=== PATIENT | female | born 2000 | race Caucasian/White ===

== ENCOUNTER 2021-07-04 03:07 | Inpatient (IN) ==
[2021-07-04] MEDS ORDERED: Naloxone 0.4 MG/ML INJ IVP PRN (05:05)
[2021-07-04] MEDS ORDERED: Ondansetron 4 MG/2 ML VIAL IVP PRN (05:05)
[2021-07-04] MEDS ORDERED: 0.9 % Sodium Chloride 1,000 ML IVC SCH (05:15)
[2021-07-04 05:47] LABS: Basophils % 0.3 %; Eosinophils # 0.1 K/mcL (0.0-0.6); Eosinophils % 0.6 %; Hematocrit 36.2 % (35.3-44.9); Hemoglobin 11.7 g/dL (11.5-15.4); Immature Granulocytes % 0.5 % (0-4); Lymphocytes # 0.9 K/mcL (0.6-4.6); Lymphocytes % 8.3 %; Mean Corpuscular HGB Conc 32.3 g/dL (31.6-35.5); Mean Corpuscular Hemoglobin 26.1 pg (28.0-33.3); Mean Corpuscular Volume 80.8 fL (83.0-100.0); Mean Platelet Volume 10.7 fL (9.4-12.4); Monocytes # 0.9 K/mcL (0.0-1.3); Monocytes % 8.7 %; Neutrophils # 8.7 K/mcL (1.6-8.9); Platelet Count 340 K/mcL (140-400); Red Blood Count 4.48 M/mcL (3.82-4.97); Red Cell Distribution Width 13.8 % (11.5-14.5); Segmented Neutrophils % 81.6 %; White Blood Count 10.6 K/mcL (4.3-11.1)
[2021-07-04 05:57] LABS: INR 1.1; Prothrombin Time 12.4 Seconds (9.4-12.1)
[2021-07-04 06:10] LABS: Alanine Aminotransferase 323 Units/L (7-52); Albumin 4.4 g/dL (3.5-5.7); Albumin/Globulin Ratio 1.5 (1.1-2.2); Alkaline Phosphatase 266 Units/L (34-104); Aspartate Amino Transferase 728 Units/L (13-39); BUN/Creatinine Ratio 13 (6-26); Bilirubin,Total 2.6 mg/dL (0.3-1.0); Blood Urea Nitrogen 8 mg/dL (6-20); Calcium 9.8 mg/dL (8.6-10.3); Carbon Dioxide 24 mEq/L (23-29); Chloride 104 mEq/L (98-107); Cholesterol 142 mg/dL (< 200); Glucose 116 mg/dL (70-105); HDL Cholesterol 71 mg/dL (40-59); LDL Cholesterol,Calculated 60 mg/dL (< 100); Osmolality,Calculated 287 (280-300); Potassium 3.7 mEq/L (3.5-5.1); Sodium 139 mEq/L (136-145); Total Protein 7.4 g/dL (6.4-8.9); Triglycerides 55 mg/dL (< 150); eGFR For African Americans > 60 (> 60); eGFR For Non-African Americans > 60 (> 60)
[2021-07-04] MEDS ORDERED: *HR* Succinylcholine 200 MG/10 ML VIAL IVP ONE (12:14)
[2021-07-04] MEDS ORDERED: Lidocaine -MPF 2% 2 ML VIAL ONE (12:14)
[2021-07-04] MEDS ORDERED: *HR* Rocuronium Bromide 50 MG/5 ML VIAL ONE (12:14)
[2021-07-04] MEDS ORDERED: Lidocaine HCL 4 ML Topical Solution (Laryng-O-Jet Kit Sterile Pak) TP ONE (12:14)
[2021-07-04] MEDS ORDERED: Ondansetron 4 MG/2 ML VIAL ONE (12:14)
[2021-07-04] MEDS ORDERED: *HR* FentaNYL (PF) 100 MCG/2 ML VIAL ONE (12:15)
[2021-07-04] MEDS ORDERED: *HR* Midazolam HCl 2 MG/2 ML VIAL ONE (12:15)
[2021-07-04] MEDS ORDERED: *HR* Propofol 200 MG/20 ML VIAL IVP ONE (12:15)
[2021-07-04] MEDS ORDERED: Indomethacin 50 MG SUPP.RECT RC ONE (13:45)
[2021-07-05 07:18] LABS: Basophils % 0.3 %; Eosinophils % 0.5 %; Hematocrit 33.7 % (35.3-44.9); Hemoglobin 10.5 g/dL (11.5-15.4); Immature Granulocytes % 0.3 % (0-4); Lymphocytes # 1.4 K/mcL (0.6-4.6); Lymphocytes % 19.2 %; Mean Corpuscular HGB Conc 31.2 g/dL (31.6-35.5); Mean Corpuscular Hemoglobin 25.4 pg (28.0-33.3); Mean Corpuscular Volume 81.4 fL (83.0-100.0); Monocytes # 0.6 K/mcL (0.0-1.3); Neutrophils # 5.4 K/mcL (1.6-8.9); Platelet Count 273 K/mcL (140-400); Red Blood Count 4.14 M/mcL (3.82-4.97); Red Cell Distribution Width 13.5 % (11.5-14.5); Segmented Neutrophils % 71.7 %; White Blood Count 7.5 K/mcL (4.3-11.1)
[2021-07-05 07:40] LABS: Alanine Aminotransferase 262 Units/L (7-52); Albumin 3.7 g/dL (3.5-5.7); Albumin/Globulin Ratio 1.5 (1.1-2.2); Alkaline Phosphatase 335 Units/L (34-104); Aspartate Amino Transferase 256 Units/L (13-39); BUN/Creatinine Ratio 13 (6-26); Bilirubin,Total 1.7 mg/dL (0.3-1.0); Blood Urea Nitrogen 8 mg/dL (6-20); Calcium 9.3 mg/dL (8.6-10.3); Carbon Dioxide 28 mEq/L (23-29); Chloride 104 mEq/L (98-107); Globulin 2.5 g/dL (2.4-3.5); Glucose 105 mg/dL (70-105); Lipase 95 Units/L (11-82); Osmolality,Calculated 285 (280-300); Potassium 3.8 mEq/L (3.5-5.1); Sodium 138 mEq/L (136-145); Total Protein 6.2 g/dL (6.4-8.9); eGFR For African Americans > 60 (> 60); eGFR For Non-African Americans > 60 (> 60)
[2021-07-05] MEDS ORDERED: Morphine Sulfate 2 MG/ML SYRINGE IVP ONE (09:00)
[2021-07-05] MEDS: Morphine Sulfate 2 MG/ML SYRINGE IVP PRN (13:00)
[2021-07-05] MEDS: polyethylene glycoL 3350 17 GM POWD.PACK PO SCH (13:17)
[2021-07-05] MEDS: 0.9 % Sodium Chloride 1,000 ML IVC SCH (13:40)
[2021-07-05] MEDS: Ketorolac 30 MG/ML VIAL IVP PRN (15:41)
[2021-07-06] MEDS: Morphine Sulfate 2 MG/ML SYRINGE IVP PRN ×3 (00:03→15:09)
[2021-07-06] MEDS: 0.9 % Sodium Chloride 1,000 ML IVC SCH ×2 (03:38→18:14)
[2021-07-06 05:40] LABS: Basophils % 0.5 %; Eosinophils # 0.1 K/mcL (0.0-0.6); Eosinophils % 1.6 %; Hematocrit 32.3 % (35.3-44.9); Immature Granulocytes % 0.3 % (0-4); Lymphocytes # 2.5 K/mcL (0.6-4.6); Lymphocytes % 38.9 %; Mean Corpuscular Hemoglobin 25.8 pg (28.0-33.3); Mean Corpuscular Volume 83.5 fL (83.0-100.0); Mean Platelet Volume 11.2 fL (9.4-12.4); Monocytes # 0.5 K/mcL (0.0-1.3); Monocytes % 7.2 %; Neutrophils # 3.3 K/mcL (1.6-8.9); Platelet Count 256 K/mcL (140-400); Red Blood Count 3.87 M/mcL (3.82-4.97); Red Cell Distribution Width 13.8 % (11.5-14.5); Segmented Neutrophils % 51.5 %; White Blood Count 6.4 K/mcL (4.3-11.1)
[2021-07-06 05:58] LABS: Alanine Aminotransferase 169 Units/L (7-52); Albumin 3.4 g/dL (3.5-5.7); Albumin/Globulin Ratio 1.4 (1.1-2.2); Alkaline Phosphatase 263 Units/L (34-104); Aspartate Amino Transferase 86 Units/L (13-39); BUN/Creatinine Ratio 16 (6-26); Bilirubin,Total 0.6 mg/dL (0.3-1.0); Blood Urea Nitrogen 8 mg/dL (6-20); Calcium 8.8 mg/dL (8.6-10.3); Carbon Dioxide 26 mEq/L (23-29); Chloride 105 mEq/L (98-107); Globulin 2.5 g/dL (2.4-3.5); Glucose 88 mg/dL (70-105); Osmolality,Calculated 286 (280-300); Potassium 3.5 mEq/L (3.5-5.1); Sodium 139 mEq/L (136-145); Total Protein 5.9 g/dL (6.4-8.9); eGFR For African Americans > 60 (> 60); eGFR For Non-African Americans > 60 (> 60)
[2021-07-06] MEDS: polyethylene glycoL 3350 17 GM POWD.PACK PO SCH (07:50)
[2021-07-06] MEDS: Ketorolac 30 MG/ML VIAL IVP PRN (13:00)
[2021-07-06] MEDS ORDERED: *HR* OxyCODONE Immed Rel 5 MG TABLET PO PRN (13:32)
[2021-07-06] MEDS ORDERED: *HR* Propofol 200 MG/20 ML VIAL IVP ONE ×2 (13:33→13:45)
[2021-07-06] MEDS ORDERED: Lidocaine -MPF 2% 2 ML VIAL ONE (13:34)
[2021-07-06] MEDS ORDERED: Ondansetron 4 MG/2 ML VIAL ONE (13:36)
[2021-07-07 01:49] LABS: Hematocrit 33.1 % (35.3-44.9); Hemoglobin 10.2 g/dL (11.5-15.4); Immature Granulocytes % 0.7 % (0-4); Lymphocytes # 0.8 K/mcL (0.6-4.6); Lymphocytes % 13.3 %; Mean Corpuscular HGB Conc 30.8 g/dL (31.6-35.5); Mean Corpuscular Hemoglobin 25.5 pg (28.0-33.3); Mean Corpuscular Volume 82.8 fL (83.0-100.0); Mean Platelet Volume 11.4 fL (9.4-12.4); Monocytes # 0.3 K/mcL (0.0-1.3); Monocytes % 4.3 %; Platelet Count 260 K/mcL (140-400); Red Cell Distribution Width 13.5 % (11.5-14.5); Segmented Neutrophils % 81.7 %; White Blood Count 6.1 K/mcL (4.3-11.1)
[2021-07-07 01:57] LABS: Alanine Aminotransferase 130 Units/L (7-52); Albumin 3.5 g/dL (3.5-5.7); Albumin/Globulin Ratio 1.3 (1.1-2.2); Alkaline Phosphatase 235 Units/L (34-104); Aspartate Amino Transferase 42 Units/L (13-39); BUN/Creatinine Ratio 15 (6-26); Bilirubin,Total 0.5 mg/dL (0.3-1.0); Blood Urea Nitrogen 7 mg/dL (6-20); Carbon Dioxide 27 mEq/L (23-29); Chloride 103 mEq/L (98-107); Globulin 2.7 g/dL (2.4-3.5); Glucose 120 mg/dL (70-105); Osmolality,Calculated 285 (280-300); Potassium 3.6 mEq/L (3.5-5.1); Sodium 138 mEq/L (136-145); Total Protein 6.2 g/dL (6.4-8.9); eGFR For African Americans > 60 (> 60); eGFR For Non-African Americans > 60 (> 60)
[2021-07-07] MEDS: 0.9 % Sodium Chloride 1,000 ML IVC SCH (05:34)
[2021-07-07] MEDS: polyethylene glycoL 3350 17 GM POWD.PACK PO SCH (07:30)
[2021-07-07] MEDS: Ketorolac 30 MG/ML VIAL IVP PRN (08:00)
[2021-07-07] MEDS ORDERED: *HR* Midazolam HCl 2 MG/2 ML VIAL ONE (08:47)
[2021-07-07] MEDS ORDERED: *HR* FentaNYL (PF) 100 MCG/2 ML VIAL ONE ×2 (08:47→10:24)
[2021-07-07] MEDS ORDERED: *HR* Propofol 200 MG/20 ML VIAL IVP ONE (08:47)
[2021-07-07] MEDS ORDERED: Scopolamine Patch 1.5 MG PATCH.TD72 TD ONE ×2 (09:11→19:24)
[2021-07-07] MEDS ORDERED: Ketorolac 30 MG/ML VIAL IVP PRN ×2 (09:11→19:24)
[2021-07-07] MEDS ORDERED: Promethazine 6.25 MG in Water for inj. (sterile) 20 ML IVPB PRN (09:11)
[2021-07-07] MEDS ORDERED: Ondansetron 4 MG/2 ML VIAL IVP PRN ×3 (09:11→19:24)
[2021-07-07] MEDS ORDERED: *HR* HYDROmorphone 2 MG TABLET PO PRN ×2 (09:11→19:24)
[2021-07-07] MEDS ORDERED: Famotidine 20 MG/2 ML VIAL IVP ONE ×2 (09:11→19:24)
[2021-07-07] MEDS ORDERED: Acetaminophen IV 1,000 MG/100 ML BAG IVPB ONE ×2 (09:11→19:24)
[2021-07-07] MEDS ORDERED: *HR* OxyCODONE Immed Rel 5 MG TABLET PO PRN ×2 (09:11→19:24)
[2021-07-07] MEDS ORDERED: *HR* Labetalol 20 MG/4 ML SYRINGE IVP PRN ×2 (09:11→19:24)
[2021-07-07] MEDS ORDERED: cefOXitin 2,000 MG in 0.9 % Sodium Chloride Mini Bag 100 ML IVPB ONE (10:05)
[2021-07-07] MEDS ORDERED: Ondansetron 4 MG/2 ML VIAL ONE (10:21)
[2021-07-07] MEDS ORDERED: Lidocaine -MPF 2% 2 ML VIAL ONE (10:21)
[2021-07-07] MEDS ORDERED: *HR* Rocuronium Bromide 50 MG/5 ML VIAL ONE (10:21)
[2021-07-07] MEDS ORDERED: *HR* Succinylcholine 200 MG/10 ML VIAL IVP ONE (10:21)
[2021-07-07] MEDS ORDERED: Lidocaine HCL 4 ML Topical Solution (Laryng-O-Jet Kit Sterile Pak) TP ONE (10:21)
[2021-07-07] MEDS ORDERED: Ketorolac 30 MG/ML VIAL ONE (10:21)
[2021-07-07] MEDS ORDERED: *HR* HYDROMORPHONE 2 MG/ML VIAL ONE (10:23)
[2021-07-07] MEDS ORDERED: Sugammadex Sodium 200 MG/2 ML VIAL IV ONE (10:41)
[2021-07-07] MEDS: *HR* HYDROmorphone (PF) 1 MG/ML SYRINGE IVP PRN ×2 (11:34→11:47)
[2021-07-07] MEDS: Morphine Sulfate 2 MG/ML SYRINGE IVP PRN ×2 (12:52→22:58)
[2021-07-07] MEDS ORDERED: Naloxone 0.4 MG/ML INJ IVP PRN (19:24)
[2021-07-07] MEDS ORDERED: *HR* HYDROmorphone (PF) 1 MG/ML SYRINGE IVP PRN (19:24)
[2021-07-07] MEDS ORDERED: 0.9 % Sodium Chloride 1,000 ML IVC SCH (19:24)
[2021-07-08] MEDS ORDERED: *HR* HYDROmorphone (PF) 1 MG/ML SYRINGE IVP ONE (00:53)
[2021-07-08 08:44] LABS: Basophils % 0.2 %; Eosinophils % 0.5 %; Hemoglobin 9.1 g/dL (11.5-15.4); Immature Granulocytes % 0.4 % (0-4); Lymphocytes # 2.3 K/mcL (0.6-4.6); Lymphocytes % 41.5 %; Mean Corpuscular HGB Conc 31.4 g/dL (31.6-35.5); Mean Corpuscular Volume 82.9 fL (83.0-100.0); Mean Platelet Volume 11.2 fL (9.4-12.4); Monocytes # 0.4 K/mcL (0.0-1.3); Monocytes % 6.9 %; Neutrophils # 2.8 K/mcL (1.6-8.9); Platelet Count 213 K/mcL (140-400); Red Cell Distribution Width 13.8 % (11.5-14.5); Segmented Neutrophils % 50.5 %; White Blood Count 5.5 K/mcL (4.3-11.1)
[2021-07-08 09:03] LABS: Alanine Aminotransferase 79 Units/L (7-52); Albumin 3.1 g/dL (3.5-5.7); Albumin/Globulin Ratio 1.5 (1.1-2.2); Alkaline Phosphatase 173 Units/L (34-104); Aspartate Amino Transferase 31 Units/L (13-39); BUN/Creatinine Ratio 5 (6-26); Bilirubin,Direct 0.1 mg/dL (0.0-0.2); Bilirubin,Indirect 0.3 mg/dL (0.0-1.0); Bilirubin,Total 0.4 mg/dL (0.3-1.0); Blood Urea Nitrogen 3 mg/dL (6-20); Calcium 8.8 mg/dL (8.6-10.3); Carbon Dioxide 30 mEq/L (23-29); Chloride 108 mEq/L (98-107); Globulin 2.1 g/dL (2.4-3.5); Glucose 94 mg/dL (70-105); Lipase 7 Units/L (11-82); Osmolality,Calculated 290 (280-300); Potassium 3.3 mEq/L (3.5-5.1); Sodium 142 mEq/L (136-145); Total Protein 5.2 g/dL (6.4-8.9); eGFR For African Americans > 60 (> 60); eGFR For Non-African Americans > 60 (> 60)
[2021-07-08] MEDS: polyethylene glycoL 3350 17 GM POWD.PACK PO SCH ×2 (09:52→23:07)
[2021-07-08] MEDS: Ketorolac 30 MG/ML VIAL IVP PRN ×2 (14:29→20:40)
[2021-07-08] MEDS: Morphine Sulfate 2 MG/ML SYRINGE IVP PRN (18:34)
[2021-07-08] MEDS ORDERED: Melatonin 3 MG TABLET PO PRN (23:01)
[2021-07-09] MEDS: Ketorolac 30 MG/ML VIAL IVP PRN (04:53)
[2021-07-09] MEDS ORDERED: Simethicone 80 MG TAB.CHEW PO ONE (11:41)
[2021-07-09 12:09] VITALS: BP 114/75; PULSE 71; TEMP 98.7; O2SAT 97
== END 2021-07-09 13:35 | disposition home or self-care (01) | DRG 263 ==
LOC: 3ANU
PROVIDERS: ADMIT Internal Medicine; ATTEND Internal Medicine

== ENCOUNTER 2021-07-14 10:38 | Observation (INO) ==
[2021-07-14] MEDS ORDERED: Mag Hydrox/Al Hydrox/Simeth 30 ML UDC PO PRN (12:11)
[2021-07-14] MEDS ORDERED: Ondansetron ODT 4 MG TAB.RAPDIS SL PRN (12:11)
[2021-07-14] MEDS ORDERED: MOM Conc 10 ML UD.LIQ PO PRN (12:11)
[2021-07-14] MEDS ORDERED: Naloxone 0.4 MG/ML INJ IVP PRN (12:11)
[2021-07-14] MEDS ORDERED: Melatonin 3 MG TABLET PO PRN (12:11)
[2021-07-14 13:11] LABS: Alanine Aminotransferase 49 Units/L (7-52); Albumin 4.2 g/dL (3.5-5.7); Albumin/Globulin Ratio 1.1 (1.1-2.2); Alkaline Phosphatase 200 Units/L (34-104); Aspartate Amino Transferase 30 Units/L (13-39); BUN/Creatinine Ratio 9 (6-26); Bilirubin,Total 0.5 mg/dL (0.3-1.0); Blood Urea Nitrogen 8 mg/dL (6-20); Calcium 9.7 mg/dL (8.6-10.3); Carbon Dioxide 22 mEq/L (23-29); Chloride 104 mEq/L (98-107); Globulin 3.9 g/dL (2.4-3.5); Glucose 103 mg/dL (70-105); Osmolality,Calculated 283 (280-300); Potassium 3.8 mEq/L (3.5-5.1); Sodium 137 mEq/L (136-145); Total Protein 8.1 g/dL (6.4-8.9); eGFR For African Americans > 60 (> 60); eGFR For Non-African Americans > 60 (> 60)
[2021-07-14 13:30] LABS: Basophils % 0.3 %; Eosinophils # 0.2 K/mcL (0.0-0.6); Eosinophils % 1.8 %; Hematocrit 38.4 % (35.3-44.9); Hemoglobin 11.8 g/dL (11.5-15.4); Immature Granulocytes % 0.4 % (0-4); Lymphocytes # 1.8 K/mcL (0.6-4.6); Lymphocytes % 15.3 %; Mean Corpuscular HGB Conc 30.7 g/dL (31.6-35.5); Mean Corpuscular Hemoglobin 25.4 pg (28.0-33.3); Mean Corpuscular Volume 82.8 fL (83.0-100.0); Mean Platelet Volume 11.2 fL (9.4-12.4); Monocytes # 0.9 K/mcL (0.0-1.3); Monocytes % 7.6 %; Platelet Count 369 K/mcL (140-400); Red Blood Count 4.64 M/mcL (3.82-4.97); Red Cell Distribution Width 13.8 % (11.5-14.5); Segmented Neutrophils % 74.6 %
[2021-07-14] MEDS: *HR* OxyCODONE Immed Rel 5 MG TABLET PO PRN (21:38)
[2021-07-15] MEDS ORDERED: Acetaminophen IV 1,000 MG/100 ML BAG IVPB ONE ×2 (00:21→05:29)
[2021-07-15 05:23] LABS: Basophils % 0.3 %; Eosinophils # 0.3 K/mcL (0.0-0.6); Eosinophils % 2.9 %; Hematocrit 35.5 % (35.3-44.9); Hemoglobin 11.3 g/dL (11.5-15.4); Immature Granulocytes % 0.3 % (0-4); Lymphocytes # 2.8 K/mcL (0.6-4.6); Lymphocytes % 26.4 %; Mean Corpuscular HGB Conc 31.8 g/dL (31.6-35.5); Mean Corpuscular Hemoglobin 25.7 pg (28.0-33.3); Mean Corpuscular Volume 80.9 fL (83.0-100.0); Mean Platelet Volume 11.2 fL (9.4-12.4); Monocytes % 9.3 %; Neutrophils # 6.5 K/mcL (1.6-8.9); Platelet Count 323 K/mcL (140-400); Red Blood Count 4.39 M/mcL (3.82-4.97); Red Cell Distribution Width 13.7 % (11.5-14.5); Segmented Neutrophils % 60.8 %; White Blood Count 10.6 K/mcL (4.3-11.1)
[2021-07-15 06:23] LABS: Alanine Aminotransferase 35 Units/L (7-52); Albumin 3.8 g/dL (3.5-5.7); Albumin/Globulin Ratio 1.3 (1.1-2.2); Alkaline Phosphatase 177 Units/L (34-104); Aspartate Amino Transferase 20 Units/L (13-39); BUN/Creatinine Ratio 14 (6-26); Bilirubin,Total 0.5 mg/dL (0.3-1.0); Blood Urea Nitrogen 10 mg/dL (6-20); Calcium 9.2 mg/dL (8.6-10.3); Carbon Dioxide 21 mEq/L (23-29); Chloride 106 mEq/L (98-107); Globulin 2.9 g/dL (2.4-3.5); Glucose 95 mg/dL (70-105); Osmolality,Calculated 281 (280-300); Potassium 3.5 mEq/L (3.5-5.1); Sodium 136 mEq/L (136-145); Total Protein 6.7 g/dL (6.4-8.9); eGFR For African Americans > 60 (> 60); eGFR For Non-African Americans > 60 (> 60)
[2021-07-15] MEDS ORDERED: Lidocaine -MPF 2% 2 ML VIAL ONE (13:51)
[2021-07-15] MEDS ORDERED: *HR* FentaNYL (PF) 100 MCG/2 ML VIAL ONE (13:51)
[2021-07-15] MEDS ORDERED: Ondansetron 4 MG/2 ML VIAL ONE (13:51)
[2021-07-15] MEDS ORDERED: *HR* Propofol 200 MG/20 ML VIAL IVP ONE (13:51)
[2021-07-15] MEDS ORDERED: Lidocaine -MPF 4% 5 ML AMPUL ONE (13:51)
[2021-07-15] MEDS ORDERED: *HR* Succinylcholine 200 MG/10 ML VIAL IVP ONE (13:51)
[2021-07-15] MEDS ORDERED: Indomethacin 50 MG SUPP.RECT RC ONE (14:29)
[2021-07-15] MEDS ORDERED: Ondansetron 4 MG/2 ML VIAL IVP PRN (14:51)
[2021-07-15] MEDS ORDERED: *HR* Meperidine 25 MG/ML SYRINGE IVP PRN (14:51)
[2021-07-15] MEDS ORDERED: *HR* HYDROmorphone PF 0.5 MG/0.5 ML SYRINGE IVP PRN (14:51)
[2021-07-15] MEDS: *HR* HYDROmorphone (PF) 1 MG/ML SYRINGE ONE ×2 (14:55→15:00)
[2021-07-15] MEDS: *HR* OxyCODONE Immed Rel 5 MG TABLET PO PRN (17:57)
[2021-07-15] MEDS ORDERED: Morphine Sulfate 2 MG/ML SYRINGE IVP PRN (18:54)
[2021-07-16] MEDS: *HR* OxyCODONE Immed Rel 5 MG TABLET PO PRN (02:59)
[2021-07-16 09:16] LABS: Alanine Aminotransferase 32 Units/L (7-52); Albumin 3.5 g/dL (3.5-5.7); Albumin/Globulin Ratio 1.3 (1.1-2.2); Alkaline Phosphatase 198 Units/L (34-104); Aspartate Amino Transferase 22 Units/L (13-39); BUN/Creatinine Ratio 14 (6-26); Bilirubin,Total 0.4 mg/dL (0.3-1.0); Blood Urea Nitrogen 9 mg/dL (6-20); Carbon Dioxide 26 mEq/L (23-29); Chloride 104 mEq/L (98-107); Globulin 2.8 g/dL (2.4-3.5); Glucose 93 mg/dL (70-105); Lipase 10 Units/L (11-82); Osmolality,Calculated 282 (280-300); Potassium 4.2 mEq/L (3.5-5.1); Sodium 137 mEq/L (136-145); Total Protein 6.3 g/dL (6.4-8.9); eGFR For African Americans > 60 (> 60); eGFR For Non-African Americans > 60 (> 60)
[2021-07-16] MEDS ORDERED: Simethicone 80 MG TAB.CHEW PO PRN (11:13)
[2021-07-16 12:23] VITALS: TEMP 98.3; O2SAT 98
[2021-07-16 13:26] LABS: Basophils % 0.2 %; Eosinophils # 0.1 K/mcL (0.0-0.6); Eosinophils % 0.8 %; Hematocrit 36.1 % (35.3-44.9); Hemoglobin 11.6 g/dL (11.5-15.4); Immature Granulocytes % 0.6 % (0-4); Lymphocytes % 20.6 %; Mean Corpuscular HGB Conc 32.1 g/dL (31.6-35.5); Mean Corpuscular Hemoglobin 25.7 pg (28.0-33.3); Mean Platelet Volume 11.5 fL (9.4-12.4); Monocytes # 1.2 K/mcL (0.0-1.3); Platelet Count 390 K/mcL (140-400); Red Blood Count 4.51 M/mcL (3.82-4.97); Red Cell Distribution Width 13.3 % (11.5-14.5); Segmented Neutrophils % 69.8 %; White Blood Count 14.4 K/mcL (4.3-11.1)
[2021-07-16 15:19] VITALS: BP 114/79; PULSE 88
== END 2021-07-16 17:36 | disposition home or self-care (01) ==
LOC: 3ANU → SUATTDRO 11:04
PROVIDERS: ADMIT Internal Medicine; ATTEND Nurse Practitioner